=== PATIENT | female | born 1985 | race American Indian/Alaskan Native ===

== ENCOUNTER 2018-07-21 16:52 | Emergency (ER) | payer SELFPAY ==
[2018-07-21 17:13] VITALS: BP 121/84
--- NOTE | 2018-07-21 18:14 | XRay Report ---
FINAL REPORT PROCEDURE: Right knee. TECHNIQUE: Three views. HISTORY: Pain and swelling. COMPARISON: No prior studies are available for comparison. FINDINGS: The bones appear intact without fracture or dislocation. The joint spaces appear satisfactory. There are small osteophytes. The soft tissues are unremarkable. There is no evidence of a knee effusion. IMPRESSION: Mild osteoarthritis.
[2018-07-21] MEDS ORDERED: IBUPROFEN PO ONE (18:26)
--- NOTE | 2018-07-21 18:26 | Emergency Department Report ---
ED Lower Extremity HPI - General Chief Complaint: Extremity Injury, Lower Stated Complaint: KNEE OUT OF PLACE Time Seen by Provider: 07/21/18 18:22 Source: patient Mode of arrival: Ambulatory Limitations: No Limitations - History of Present Illness Initial Comments: This is a 33-year-old female nontoxic, well nourished in appearance, no acute signs of distress presents to the ED with c/o of right knee pain x1 week. Patient stated that she felt a popping sensation. Patient denies any trauma. Patient denies any numbness, tingling, fever, chills, nausea, vomiting, chest pain, shortness of breath, headache, stiff neck. Patient denies any joint swelling or joint redness. Patient denies decreased range of motion. Patient stated has decreased gait due to pain. Patient denies any allergies or significant past medical history. MD Complaint: knee injury -: week(s) (1) Injury: Knee: Right Severity: mild Severity scale (0 -10): 8 Improves With: immobilization Worsens With: weight bearing, movement, palpation Associated Symptoms: snap/pop sensation, swelling, able to partially bear weight, ambulatory. denies: numbness, tingling, unable to bear weight - Related Data Previous Rx's Medication Instructions Recorded Last Taken Type Acetaminophen/Codeine [Tylenol 1 tab PO Q6H PRN #12 tab 07/21/18 Unknown Rx /Codeine # 3 tab] Ibuprofen [Motrin] 600 mg PO Q8H PRN #20 tablet 07/21/18 Unknown Rx Allergies Allergy/AdvReac Type Severity Reaction Status Date / Time No Known Allergies Allergy Unverified 07/21/18 17:10 ED Review of Systems ROS: Stated complaint: KNEE OUT OF PLACE Other details as noted in HPI Constitutional: denies: chills, fever Eyes: denies: eye pain, eye discharge, vision change ENT: denies: ear pain, throat pain Respiratory: denies: cough, shortness of breath, wheezing Cardiovascular: denies: chest pain, palpitations Endocrine: no symptoms reported Gastrointestinal: denies: abdominal pain, nausea, diarrhea Genitourinary: denies: urgency, dysuria, discharge Musculoskeletal: denies: back pain, joint swelling, arthralgia Skin: denies: rash, lesions Neurological: denies: headache, weakness, paresthesias Psychiatric: denies: anxiety, depression Hematological/Lymphatic: denies: easy bleeding, easy bruising ED Past Medical Hx - Past Medical History Previous Medical History?: Yes Hx Asthma: Yes - Surgical History Past Surgical History?: No - Social History Smoking Status: Never Smoker Substance Use Type: None - Medications Home Medications: Home Medications Medication Instructions Recorded Confirmed Last Taken Type Acetaminophen/Codeine [Tylenol 1 tab PO Q6H PRN #12 tab 07/21/18 Unknown Rx /Codeine # 3 tab] Ibuprofen [Motrin] 600 mg PO Q8H PRN #20 tablet 07/21/18 Unknown Rx ED Physical Exam - General Limitations: No Limitations General appearance: alert, in no apparent distress - Head Head exam: Present: atraumatic, normocephalic - Neck Neck exam: Present: normal inspection, full ROM - Extremities Exam Extremities exam: Present: normal inspection, full ROM, tenderness, normal cap illary refill. Absent: joint swelling, calf tenderness - Expanded Lower Extremity Exam Right Hip exam: Present: normal inspection, full ROM. Absent: tenderness, swelling Upper Leg exam: Present: normal inspection, full ROM. Absent: tenderness Knee exam: Present: normal inspection, full ROM, tenderness, swelling, full knee extension. Absent: abrasion, laceration, ecchymosis, deformity, crepidus, dislocation, erythema, effusion, pain w/ pronation/supination, posterior draw sign, pain/laxity with valgus, pain/laxity with varus Lower Leg exam: Present: normal inspection, full ROM. Absent: tenderness, swelling Ankle exam: Present: normal inspection, full ROM. Absent: tenderness Foot/Toe exam: Present: normal inspection, full ROM. Absent: tenderness Neuro vascular tendon exam: Present: no vascular compromise Gait: Positive: observed and limited by pain - Back Exam Back exam: Present: normal inspection, full ROM - Neurological Exam Neurological exam: Present: alert, oriented X3 - Psychiatric Psychiatric exam: Present: normal affect, normal mood - Skin Skin exam: Present: warm, dry, intact, normal color. Absent: rash ED Course Vital Signs 07/21/18 17:10 Temperature 98.0 F Pulse Rate 81 Respiratory 18 Rate Blood Pressure 121/84 O2 Sat by Pulse 100 Oximetry - Reevaluation(s) Reevaluation #1: 07/21/18 18:54 Patient is speaking in full sentences with no signs of distress noted. ED Lower Extremity MDM - Medical Decision Making This is a 33-year-old female that presents with right knee strain. Patient is stable and was examined by me. I referred patient to an orthopedic doctor for further evaluation for possible MRI. X-ray has been obtained and dictated by the radiologist. Patient is notified of the x-ray report with noted by the patient. Patient does have normal gait with no tenderness and no joint swelling. No ecchymosis. no joint redness or swelling. Not warm to touch. No signs of cellulites present. Patient received a knee immobilize and crutches and was educated by RN how to use crutches. Patient was instructed to RICE therapy. Patient received Motrin for pain. Patient is discharged with Motrin. At time of discharge, the patient does not seem toxic or ill in appearance. No acute signs of distress noted. Patient agrees to discharge treatment plan of care. No further questions noted by the patient. Critical care attestation.: If time is entered above; I have spent that time in minutes in the direct care of this critically ill patient, excluding procedure time. ED Disposition Clinical Impression: Strain of right knee Qualifiers: Encounter type: initial encounter Qualified Code(s): S86.911A - Strain of unspecified muscle(s) and tendon(s) at lower leg level, right leg, initial e ncounter Disposition: DC-01 TO HOME OR SELFCARE Is pt being admited?: No Does the pt Need Aspirin: No Condition: Stable Instructions: Knee Pain (ED), RICE Therapy (ED), Knee Immobilizer (ED) Additional Instructions: Follow-up with a orthopedic doctor in 3-5 days or if symptoms worsen and continue return to emergency room as soon as possible. Do not operate any machinery while taking Tylenol with codeine as this may cause drowsiness. Prescriptions: Acetaminophen/Codeine [Tylenol /Codeine # 3 tab] 1 tab PO Q6H PRN #12 tab PRN Reason: Pain , Severe (7-10) Ibuprofen [Motrin] 600 mg PO Q8H PRN #20 tablet PRN Reason: Pain Referrals: PRIMARY CARE, [Referring] - 3-5 Days ZHENG KEITH MD [Staff Physician] - 3-5 Days [facility] [Outside] - 3-5 Days Forms: Work/School Release Form(ED)
== END 2018-07-21 19:14 | disposition home or self-care (01) ==
LOC: ED 16:52
DX: S86.911A Strain of unspecified muscle(s) and tendon(s) at lower leg level, right leg, initial encounter (principal); J45.909 Unspecified asthma, uncomplicated; W18.09XA Striking against other object with subsequent fall, initial encounter; Y93.89 Activity, other specified; Y92.89 Other specified places as the place of occurrence of the external cause; Y99.8 Other external cause status

== ENCOUNTER 2019-12-18 16:04 | Emergency (ER) | payer SELFPAY ==
[2019-12-18] MEDS ORDERED: IPRATROPIUM 0.02% NEBU 2.5 ML IH ONE (16:36)
[2019-12-18] MEDS ORDERED: ALBUTEROL 2.5 MG/3 ML NEBU IH ONE (16:36)
[2019-12-18 16:37] VITALS: BP 118/85
--- NOTE | 2019-12-18 16:40 | Emergency Department Report ---
HPI - General Chief Complaint: Dyspnea/Respdistress Time Seen by Provider: 12/18/19 16:25 - HPI HPI: Room 8 The patient is a 34-year-old female present with a chief complaint of shortness of breath and left wrist pain. 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 The patient states she smelled the chemicals and began to make her chest hurt. The patient states she sat down and then had an asthma attack. There is some question to whether or not the patient lost consciousness because she states she woke up and EMS had helped her from the floor. Patient believes she injured her left wrist during this episode. Patient was administered albuterol in route and now states she does not have any shortness of breath. Patient's only complaint currently is left wrist pain. Patient states she was told she had coughed up some blood while at work. Patient denies any recent flights or long car trips. Patient denies history of fever ED Past Medical Hx - Past Medical History Previous Medical History?: Yes Hx Asthma: Yes - Surgical History Past Surgical History?: No - Social History Smoking Status: Never Smoker Substance Use Type: Alcohol - Medications Home Medications: Home Medications Medication Instructions Recorded Confirmed Last Taken Type Acetaminophen/Codeine [Tylenol 1 tab PO Q6H PRN #12 tab 07/21/18 Unknown Rx /Codeine # 3 tab] Ibuprofen [Motrin] 600 mg PO Q8H PRN #20 tablet 07/21/18 Unknown Rx Albuterol INH(or & Nicu Only) 2 puff IH QID PRN #8.5 gram 12/18/19 Unknown Rx [ProAir HFA Inhaler] Prednisone [predniSONE 10 mg 10 mg PO .TAPER #1 tab.ds.pk 12/18/19 Unknown Rx (6-Day Pack, 21 Tabs)] traMADoL [Ultram] 50 mg PO Q6HR PRN #10 tablet 12/18/19 Unknown Rx ED Review of Systems ROS: Stated complaint: SOB/COUGHING BLOOD Other details as noted in HPI Physical Exam - Physical Exam Vital Signs: Vital Signs 12/18/19 16:36 Temperature 98.5 F Pulse Rate 82 Respiratory 16 Rate Blood Pressure 118/85 [Right] O2 Sat by Pulse 100 Oximetry ED Course Vital Signs 12/18/19 16:36 Temperature 98.5 F Pulse Rate 82 Respiratory 16 Rate Blood Pressure 118/85 [Right] O2 Sat by Pulse 100 Oximetry - Reevaluation(s) Reevaluation #1: 12/18/19 18:37 Patient improved and asking to go home ED Medical Decision Making - Lab Data Result diagrams: 12/18/19 16:38 12/18/19 16:38 Laboratory Tests 12/18/19 12/18/19 12/18/19 16:38 16:38 16:38 WBC 9.3 RBC 4.58 Hgb 9.2 L Hct 30.5 MCV 67 L MCH 20 L MCHC 30 RDW 17.9 H Plt Count 465 H Lymph % (Auto) 31.0 [place] % (Auto) 8.4 H Eos % (Auto) 6.1 H Baso % (Auto) 1.0 Lymph # 2.9 [place] # 0.8 Eos # 0.6 H Baso # 0.1 Seg Neutrophils % 53.5 Seg Neutrophils # 5.0 D-Dimer 259.53 H Sodium 140 Potassium 3.6 Chloride 105.5 Carbon Dioxide 21 L Anion Gap 17 BUN 10 Creatinine 0.7 Estimated GFR > 60 BUN/Creatinine Ratio 14 Glucose 101 H Calcium 9.5 Total Creatine Kinase CK-MB (CK-2) CK-MB (CK-2) Rel Index Troponin T NT-Pro-B Natriuret Pep HCG, Qual 12/18/19 12/18/19 16:38 16:38 WBC RBC Hgb Hct MCV MCH MCHC RDW Plt Count Lymph % (Auto) [place] % (Auto) Eos % (Auto) Baso % (Auto) Lymph # [place] # Eos # Baso # Seg Neutrophils % Seg Neutrophils # D-Dimer Sodium Potassium Chloride Carbon Dioxide Anion Gap BUN Creatinine Estimated GFR BUN/Creatinine Ratio Glucose Calcium Total Creatine Kinase 147 H CK-MB (CK-2) < 1.0 CK-MB (CK-2) Rel Index 0.6 Troponin T < 0.010 NT-Pro-B Natriuret Pep 24.46 HCG, Qual Negative - EKG Data -: EKG Interpreted by Me EKG shows normal: sinus rhythm Rate: normal - EKG Data When compared to previous EKG there are: previous EKG unavailable Interpretation: normal EKG - Radiology Data Radiology results: report reviewed (CT chest left wrist x-ray), image reviewed (CT chest, left wrist x-ray) interpreted by me: Left wrist x-ray-no acute fracture Findings [facility] [address] [place] [address] Cat Scan Report Signed Patient: CYDNEY PEREZ MR#: [id number] 686 : 1985 Acct:[id number] Age/Sex: 34 / F ADM Date: 12/18/19 Loc: ED Attending Dr: Ordering Physician: TRACEY ADAMS MD Date of Service: 12/18/19 Procedure(s): CT angio chest Accession Number(s): [id number] cc: TRACEY ADAMS MD CT angiography of the chest with 2-D reconstructions INDICATION: Pleuritic chest pain Thin section axial images were obtained as well as 2-D reformatted MIP images in all 3 p lanes FINDINGS: There is no hilar or mediastinal adenopathy. No pleural or pericardial effusion. Lung windows show no nodules, masses or infiltrates. There is no thoracic aortic aneurysm or dissection present. Routine axial images as well as 2-D reconstructions through the pulmonary arteries show no evidence of emboli. IMPRESSION: Negative chest CTA Automated exposure control was utilized to diminish radiation dose. Signer Name: Andrew Mrak MD Signed: 12/18/2019 6:09 PM Workstation Name: [id number] Transcribed By: Dictated By: Andrew Mark MD Electronically Authenticated By: Andrew Mark MD Signed Date/Time: 12/18/191808 DD/ 05 TD/TT: Findings [address] [address] XRay Report Signed Patient: CYDNEY PEREZ MR#: [id number] [id number] : 1985 Acct:[id number] Age/Sex: 34 / F ADM Date: 12/18/19 Loc: ED Attending Dr: Ordering Physician: TRACEY ADAMS MD Date of Service: 12/18/19 Procedure(s): XR wrist 3+V LT Accession Number(s): [id number] cc: TRACEY ADAMS MD Fluoro Time In Minutes: LEFT WRIST 3 VIEWS INDICATION: MAIN: Pain after fall; Pt stated she walked through an area where some cleaning fluids were used. She feels this trigger her asthma. She stated she made have passed out and fell to the ground. Pt has left wrist pain.. COMPARISON: No relevant prior imaging study available. FINDINGS: No acute fracture or dislocation. No significant soft tissue swelling. Peripheral IV is noted in the dorsal soft tissues. IMPRESSION: 1. No acute findings. Signer Name: Beny Petit MD Signed: 12/18/2019 5:44 PM Workstation Name: [email or web address] Transcribed By: SW Dictated By: Beny Petit MD Electronically Authenticated By: Beny Petit MD Signed Date/Time: 12/18/191743 DD/ 42 TD/TT: - Differential Diagnosis Chemical pneumonitis, asthma exacerbation, syncope, ACS, PE Critical care attestation.: If time is entered above; I have spent that time in minutes in the direct care of this critically ill patient, excluding procedure time. ED Disposition Clinical Impression: Acute asthma exacerbation, Left wrist sprain, History of exposure to noxious chemical Disposition: DC-01 TO HOME OR SELFCARE Is pt being admited?: No Does the pt Need Aspirin: No Condition: Stable Instructions: Asthma (ED) Additional Instructions: Return to the emergency department should you develop worsening symptoms, inability to tolerate food or liquids, high fever or any other concerns Prescriptions: Prednisone [predniSONE 10 mg (6-Day Pack, 21 Tabs)] 10 mg PO .TAPER #1 tab.ds.pk Albuterol INH(or & Nicu Only) [ProAir HFA Inhaler] 2 puff IH QID PRN #8.5 gram PRN Reason: Shortness Of Breath traMADoL [Ultram] 50 mg PO Q6HR PRN #10 tablet PRN Reason: Pain Referrals: PRISCILLA TROY DO [Staff Physician] - 3-5 Days ZHENG BALL MD [Staff Physician] - 3-5 Days (Dr. Ball is an orthopedic surgeon. Please follow-up with him for further evaluation of your wrist pain if it persists) Time of Disposition: 18:39
[2019-12-18 17:01] LABS: Basophils # (Auto) 0.1 K/mm3 (0.0-0.1); Eosinophils # (Auto) 0.6 K/mm3 (0.0-0.4); Eosinophils % (Auto) 6.1 % (0.0-4.3); Hematocrit 30.5 % (30.3-42.9); Hemoglobin 9.2 gm/dl (10.1-14.3); Lymphocytes # (Auto) 2.9 K/mm3 (1.2-5.4); Mean Corpuscular HGB Conc 30 % (30-34); Monocytes # (Auto) 0.8 K/mm3 (0.0-0.8); Monocytes % (Auto) 8.4 % (0.0-7.3); Platelet Count 465 K/mm3 (140-440); Red Blood Count 4.58 M/mm3 (3.65-5.03); Red Cell Distribution Width 17.9 % (13.2-15.2)
[2019-12-18 17:02] LABS: Mean Corpuscular Volume 67 fl (79-97)
[2019-12-18 17:08] LABS: BUN/Creatinine Ratio 14; Blood Urea Nitrogen 10 mg/dL (7-17); Calcium 9.5 mg/dL (8.4-10.2); Hemolysis Index 0
[2019-12-18 17:14] LABS: Creatine Kinase MB < 1.0 ng/mL (0.0-4.0)
[2019-12-18] MEDS ORDERED: KETOROLAC 30 MG/1 ML INJ ONE (18:39)
[2019-12-18] MEDS ORDERED: KETOROLAC 30 MG/1 ML INJ IV ONE (18:46)
== END 2019-12-18 18:54 | disposition home or self-care (01) ==
LOC: ED 16:04
DX: S63.592A Other specified sprain of left wrist, initial encounter (principal); J45.901 Unspecified asthma with (acute) exacerbation; X58.XXXA Exposure to other specified factors, initial encounter; Y93.89 Activity, other specified; Y92.89 Other specified places as the place of occurrence of the external cause; Y99.8 Other external cause status
CPT/HCPCS: 36415; 71275; 73110; 80048; 82550; 82553; 83880; 84484; 84703; 85025; 85379; 93005; 94644; 96374; 99285; J1885; Q9967